=== PATIENT | female | born 1990 | race American Indian/Alaskan Native ===

== ENCOUNTER 2019-12-08 02:16 | Emergency (ER) | payer OTHER ==
[2019-12-08] MEDS ORDERED: FAMOTIDINE 20 MG/2 ML INJ IV ONE ×2 (02:37→02:39)
--- NOTE | 2019-12-08 02:43 | Emergency Department Report ---
ED Allergic Reaction HPI - General Chief complaint: Allergic Reaction Stated complaint: ALLERGIC REACTION Time Seen by Provider: 12/08/19 02:34 Source: patient, EMS Mode of arrival: Stretcher Limitations: No Limitations - History of Present Illness Initial Comments: Patient is 28 years old female with history of depression. Patient presented to the ER via EMS from home for evaluation of allergic reaction possibly to food. Patient also stated that she started using new black soap. Patient presenting with a facial swelling and lip swelling. Patient denied any difficulty breathing or difficulty swallowing. Patient received 50 mg of IV Benadryl, 125 mg of Solu-Medrol and 0.3 mg of epinephrine subcutaneously by EMS. Patient stated that her symptoms is better now. MD Complaint: allergic reaction, hives, facial swelling -: Last night Exposure: food Symptoms: itching, facial swelling, lip swelling Previous Allergy History: prior ED visit(s) - Related Data Allergies Allergy/AdvReac Type Severity Reaction Status Date / Time No Known Allergies Allergy Verified 06/13/15 03:27 ED Review of Systems ROS: Stated complaint: ALLERGIC REACTION Other details as noted in HPI Comment: All other systems reviewed and negative Constitutional: denies: chills, fever Respiratory: denies: cough, shortness of breath Cardiovascular: denies: chest pain, palpitations Gastrointestinal: denies: abdominal pain, nausea, vomiting ED Past Medical Hx - Past Medical History Previous Medical History?: Yes Hx Psychiatric Treatment: Yes (Anxiety) - Surgical History Past Surgical History?: No Additional Surgical History: Hernia repair - Social History Smoking Status: Never Smoker ED Physical Exam - General Limitations: No Limitations General appearance: alert, in no apparent distress - Head Head exam: Present: atraumatic, normocephalic, normal inspection - ENT ENT exam: Present: normal orophraynx, other ( Swelling, periorbital swelling. No orolingual swelling noticed.) - Neck Neck exam: Present: normal inspection, full ROM. Absent: tenderness, meningismus - Respiratory Respiratory exam: Present: normal lung sounds bilaterally - Cardiovascular Cardiovascular Exam: Present: regular rate, normal rhythm, normal heart sounds - GI/Abdominal GI/Abdominal exam: Present: soft, normal bowel sounds. Absent: distended, tenderness, guarding, rebound, rigid, mass, bruit, pulsatile mass - Extremities Exam Extremities exam: Present: normal inspection, full ROM, normal capillary refill - Back Exam Back exam: Present: normal inspection, full ROM - Neurological Exam Neurological exam: Present: alert, oriented X3, CN II-XII intact, normal gait, reflexes normal - Psychiatric Psychiatric exam: Present: normal mood. Absent: suicidal ideation - Skin Skin exam: Present: warm, intact, normal color ED Course Vital Signs 12/08/19 12/08/19 12/08/19 02:22 02:24 02:38 Temperature 98.4 F Pulse Rate 89 90 Respiratory 22 26 H Rate Blood Pressure 136/78 O2 Sat by Pulse 97 98 100 Oximetry 12/08/19 12/08/19 02:45 03:00 Temperature Pulse Rate 82 Respiratory 19 Rate Blood Pressure 111/65 119/70 O2 Sat by Pulse 100 100 Oximetry ED Medical Decision Making - Lab Data Result diagrams: 12/08/19 03:02 12/08/19 03:02 - Medical Decision Making Patient is 28 years old female with history of depression. Patient presented to the ER via EMS from home for evaluation of allergic reaction possibly to food. Patient also stated that she started using new black soap. Patient presenting with a facial swelling and lip swelling. Patient denied any difficulty breathing or difficulty swallowing. Patient received 50 mg of IV Benadryl, 125 mg of Solu-Medrol and 0.3 mg of epinephrine subcutaneously by EMS. Patient stated that her symptoms is better now. Labs reviewed and is unremarkable. Patient remained stable in the ER. Patient stated that she is feeling much better. Patient still denying any difficulty swallowing or difficulty breathing. Patient given prescription for Benadryl, prednisone and Pepcid and advised to follow-up with her primary care physician in the next 2 to 3 days and to return to the ER if she develop any new symptoms. Critical care attestation.: If time is entered above; I have spent that time in minutes in the direct care of this critically ill patient, excluding procedure time. ED Disposition Clinical Impression: Allergic reaction Disposition: DC-01 TO HOME OR SELFCARE Is pt being admited?: No Condition: Stable Instructions: Food Allergy (ED), Anaphylaxis (ED) Referrals: PRIMARY CARE,MD [Primary Care Provider] - 3-5 Days
[2019-12-08 03:39] LABS: Hematocrit 35.9 % (30.3-42.9); Hemoglobin 11.6 gm/dl (10.1-14.3); Mean Corpuscular HGB Conc 32 % (30-34); Mean Corpuscular Volume 81 fl (79-97); Platelet Count 358 K/mm3 (140-440); Red Blood Count 4.46 M/mm3 (3.65-5.03)
[2019-12-08 03:40] LABS: BUN/Creatinine Ratio 13; Blood Urea Nitrogen 9 mg/dL (7-17); Calcium 9.4 mg/dL (8.4-10.2); Hemolysis Index 4
[2019-12-08 05:52] LABS: Basophils % (Manual) 0 % (0.0-1.8); Hypochromasia Few; Ovalocytes Rare; Platelet Estimate Consistent w Auto; Total Cells Counted 100
[2019-12-08 06:05] VITALS: BP 124/78
== END 2019-12-08 05:43 | disposition home or self-care (01) ==
LOC: ED 02:16
DX: T78.40XA Allergy, unspecified, initial encounter (principal); F41.9 Anxiety disorder, unspecified; X58.XXXA Exposure to other specified factors, initial encounter
CPT/HCPCS: 36415; 80048; 85007; 85025